=== PATIENT | female | born 1960 | race Caucasian/White ===

== ENCOUNTER 2017-08-25 21:54 | Emergency (ER) | payer MEDICAID, OTHER ==
[~2017-08-25] VITALS: Ht 165.1 cm; Wt 85.4 kg
[2017-08-25 21:56] VITALS: BP 197/103
[2017-08-25] MEDS ORDERED: TIOT18CA INH (22:07)
== END 2017-08-25 23:07 | disposition home or self-care (01) ==
LOC: ED 22:50
DX: S83.412A Sprain of medial collateral ligament of left knee, initial encounter (principal); S83.422A Sprain of lateral collateral ligament of left knee, initial encounter; S93.492A Sprain of other ligament of left ankle, initial encounter; S80.01XA Contusion of right knee, initial encounter; S50.02XA Contusion of left elbow, initial encounter; I10 Essential (primary) hypertension; W19.XXXA Unspecified fall, initial encounter; Y93.89 Activity, other specified; Y92.89 Other specified places as the place of occurrence of the external cause; Y99.9 Unspecified external cause status
CPT/HCPCS: 99284